=== PATIENT | female | born 1985 | race Caucasian/White ===

== ENCOUNTER 2019-11-14 19:53 | Emergency (ER) | payer OTHER, MEDICAID, SELFPAY ==
[2019-11-14 20:04] VITALS: BP 138/85; PULSE 102; RESP 24; TEMP 37.4; O2SAT 100
--- NOTE | 2019-11-14 21:30 | ED_ITS ---
HPI - Skin/Abscess/Foreign Bdy General Chief complaint: Skin/Abscess/Foreign Body Stated complaint: abcess right forearm draining Time Seen by Provider: 11/14/19 20:45 Source: patient Mode of arrival: Ambulatory Limitations: no limitations History of Present Illness HPI narrative: 34-year-old woman with a history of IV drug use presents with a right forearm abscess that is just starting to drain. She does have a moderate amount of cellulitis over the upper arm. She doesn't report significant fevers but she does note that she hasn't been feeling as well for the last few days. She does note that it has been draining somewhat already. She has been taking amoxicillin for the last 2 days and has noticed that the superficial erythema extending up the forearm is improving. She states that she has never had a bscesses or other health complications from her IV drug use Related Data Home Medications Medication Instructions Recorded Confirmed No Known Home Medications 11/14/19 11/14/19 Allergies Allergy/AdvReac Type Severity Reaction Status Date / Time Penicillins Allergy Intermediate Rash Verified 11/14/19 20:12 Review of Systems Review of Systems Narrative: She notes that she has returned intermittently to her half a g of IV heroin drug use. She is intermittently following up with [facility] and Suboxone. Review of systems is otherwise unremarkable Patient History Medical History (Updated 11/14/19 @ 21:49 by Olivia Leone MD) Opioid use disorder (Acute) Social History Smoking Status: Current every day smoker Smoking Status: Current every day smoker tobacco type: cigarettes alcohol intake frequency: 0-2 drinks per day Substance Use Type: heroin and IV drugs Exam Narrative Exam Narrative: General: Alert appropriate in no acute distress Respiratory: Able to speak in full sentences, no obvious respiratory distress Cardiac: On careful auscultation no murmurs gallops rubs or clicks Skin: warm and dry, area of necrotic tissue developing on the underside of her right forearm which is the area of drainage. Her forearm is tense without obvious fluctuance aside from the portion that's draining. She has erythema extending past the elbow and down toward the wrist. She has full range of motion that is not painful at the shoulder the elbow the wrist and fingers. Full sensation to all fingers right hand Neurologic: Grossly intact no obvious asymmetries or abnormalities Psych, appropriate insight and affect, cooperative Bedside ultrasound suggests moderate amount of fluid still remaining in the forearm close to the area of drainage Initial Vital Signs Initial Vital Signs: Vital Signs Temperature 99.4 F 11/14/19 20:04 Pulse Rate 102 H 11/14/19 20:04 Respiratory Rate 24 11/14/19 20:04 Blood Pressure 138/85 11/14/19 20:04 Pulse Oximetry 100 11/14/19 20:04 Procedures Abscess I/D I&D #1: Site: upper extremity Side (if applicable): right Local Anesthetic: lidocaine 1% Amount of anesthesia used (mL): 10 Technique: incised with #11 blade Amount of fluid expressed (mL): 10 Irrigation: Yes Packing used?: plain Complications: other (The area of necrotic tissue was debrided and extruded. the wound was extended up toward the elbow for approximately 2 cm to get more of the fluid seen on the bedside ultrasound to drain.) Course Orders Ordered: Discontinued Medications Ceftriaxone Sodium (Rocephin) 2,000 mg IM NOW ONE Stop: 11/14/19 21:09 Ceftriaxone Sodium (Rocephin) 1,000 mg IM NOW ONE Stop: 11/14/19 21:30 Ceftriaxone Sodium (Rocephin) 1,000 mg IM NOW ONE Stop: 11/14/19 21:31 Ceftriaxone Sodium (Rocephin) 1,000 mg IM NOW ONE Stop: 11/14/19 21:38 Lidocaine HCl (Xylocaine 1%) 4.2 ml INJ NOW ONE Stop: 11/14/19 21:09 Lidocaine HCl (Xylocaine-Mpf 1%) 10 ml INJ NOW ONE Stop: 11/14/19 21:18 Lidocaine/Sodium Bicarbonate (Buffered Lidocaine 10 Ml Syr) 10 ml INJ NOW ONE Stop: 11/14/19 21:15 Vital Signs Vital signs: Vital Signs - 8 hr 11/14/19 20:04 Temperature 99.4 F Pulse Rate 102 H Respiratory Rate 24 Blood Pressure 138/85 Pulse Oximetry 100 Discharge Plan Departure Patient Disposition: Home Clinical Impression: Opioid use disorder Cellulitis Qualifiers: Site of cellulitis: extremity Site of cellulitis of extremity: upper extremity Laterality: right Qualified Code(s): L03.113 - Cellulitis of right upper limb Abscess of skin or subcutaneous tissue Qualifiers: Site of cutaneous abscess: extremity Site of cutaneous abscess of extremity: upper extremity Laterality: right Qualified Code(s): L02.413 - Cutaneous abscess of right upper limb Instructions: DI for Skin Abscess Activity Restrictions/Additional Instructions: Thank you for coming in today. Your abscess did need to be opened a bit more and some of the tissue needed to be removed. This wound will heal from the inside out but it will take some time to do that. I have left a bit of packing in the wound that I would like you to remove on Saturday or Saturday. You can do this in the shower. It is okay to get the wound wet and let water run over the wound. It is okay and encouraged to allow it to continue to drain more. You've been given 2 g of ceftriaxone as a shot of antibiotics in the emergency department to make sure that were controlling the cellulitis over the forearm. I would like you to stop the amoxicillin that your current leak taking. Tomorrow I want you to start clindamycin and Septra together. These 2 antibiotics are both helpful in treating MRSA infections. We typically assumed that abscesses are MRSA infections If you notice that you are getting worse, developed fevers, you're having shortness of breath, or your arm is not improving, please return to the emergency room. Good luck with the rest of your schooling and I really encouraged to get back to [facility] Prescriptions: No Action No Known Home Medications RF: 0
[2019-11-14] MEDS: LIDOCAINE 1% 20 ML 4.2 ML INJ (22:15)
[2019-11-14] MEDS: cefTRIAXone 2,000 MG VIAL 1000 MG IM ×2 (22:15)
[2019-11-14 22:38] VITALS: BP 153/83; PULSE 72; RESP 16; O2SAT 94
== END 2019-11-14 22:40 | disposition home or self-care (01) ==
PROVIDERS: Emergency Provider Emergency Medicine
DX: L03.113 Cellulitis of right upper limb (principal); L02.413 Cutaneous abscess of right upper limb; F11.99 Opioid use, unspecified with unspecified opioid-induced disorder
CPT/HCPCS: 10060; 96372; 99283; J0696

== ENCOUNTER 2020-06-15 03:19 | Emergency (ER) | payer OTHER, MEDICAID, SELFPAY ==
[2020-06-15 03:20] VITALS: BP 120/75; PULSE 101; RESP 20; TEMP 36.8; O2SAT 100
--- NOTE | 2020-06-15 03:21 | ED.GENADULT ---
HPI - General Adult General Chief complaint: Skin/Abscess/Foreign Body Stated complaint: cellulitis left hand wants antibiotics Time Seen by Provider: 06/15/20 03:19 Source: patient Mode of arrival: Ambulatory Limitations: no limitations History of Present Illness HPI narrative: Patient is a 35-year-old female. Known IV drug user with daily heroin here for evaluation of abscess/cellulitis to her left hand/wrist. She states that she noticed the swelling a couple days ago. It started to drain within the past 24 hours. No fevers. She stated that this was an location where she has injected herself. She has had multiple abscesses and cellulitis in the past and she was concerned that she needed antibiotics. Has not tried anything for her symptoms prior to arrival. Related Data Previous Rx's Medication Instructions Recorded clindamycin HCl 300 mg PO TID #21 cap 11/14/19 sulfamethoxazole-trimethoprim 2 tab PO BID #28 tab 11/14/19 clindamycin HCl 300 mg PO Q6H 7 Days #28 cap 06/15/20 Allergies Allergy/AdvReac Type Severity Reaction Status Date / Time Penicillins Allergy Intermediate Rash Verified 11/14/19 20:12 Review of Systems Constitutional Constitutional: Denies fever(s) Cardiovascular Cardiovascular: Denies chest pain and Denies dyspnea Respiratory Respiratory: Denies dyspnea Musculoskeletal Comments: Swelling and pain left arm and wrist Integumentary/Breasts Comments: Redness and swelling to the left wrist and hand up the left arm Neurologic Neurologic: Denies behavioral changes Psychiatric Psychiatric: Denies behavioral changes Hematologic/Lymphatic Hematologic/Lymphatic: Denies easy bleeding and Denies easy bruising Patient History Medical History Opioid use disorder (Acute) Social History Smoking Status: Current every day smoker Smoking Status: Current every day smoker tobacco type: cigarettes alcohol intake frequency: 0-2 drinks per day Substance Use Type: heroin and IV drugs Exam Initial Vital Signs Initial Vital Signs: Vital Signs Temperature 98.2 F 06/15/20 03:20 Pulse Rate 101 H 06/15/20 03:20 Respiratory Rate 20 06/15/20 03:20 Blood Pressure 120/75 06/15/20 03:20 Pulse Oximetry 100 06/15/20 03:20 Const General: cooperative and comfortable Limitations: mental status not altered HENAK Head: normal to inspection and normocephalic Cardio Pulses: radial pulses present on the left Skin Other: Patient with a 1 cm x 2 cm abscess that is draining on the volar aspect of the left forearm just proximal to the wrist at the base of the thumb on the radial aspect. Patient has redness that extends down into the hand into the thumb. Also redness that extends on the ulnar aspect/volar aspect of the left forearm up to the elbow and potentially into the left upper extremity however this is not for certain and could potentially be a sunburn. Neuro General: patient alert and patient awake Sensory Exam: no sensory deficits noted Extrem Other: Swelling of the left hand and left forearm. Patient can flex and extend at the wrist Psych Appearance: grossly normal and well kempt Procedures Abscess I/D I&D #1: Site: other (Left wrist) Side (if applicable): left Local Anesthetic: lidocaine 1% and with bicarb Amount of anesthesia used (mL): 6 Technique: incised with #11 blade Irrigation: Yes Packing used?: none Scores GCS Jose coma scale eye opening: Spontaneous Jose coma scale verbal response: Orientated Jose coma scale motor response: Obey commands [place] coma scale total score: 15 Course Orders Ordered: ED Orders 06/15/20 03:28 Wound Culture and Gram Stain Stat Clindamycin Phosphate (Cleocin) 600 mg in 50 mls @ 50 mls/hr IV NOW ONE Stop: 06/15/20 04:44 Last Admin: 06/15/20 03:53 Dose: 50 mls/hr Documented by: RMARTIN Discontinued Medications Lidocaine/Sodium Bicarbonate (Buffered Lidocaine 10 Ml Syr) 10 ml INJ NOW ONE Stop: 06/15/20 03:25 Last Admin: 06/15/20 03:28 Dose: 10 ml Documented by: BRENDAN Vital Signs Vital signs: Vital Signs - 8 hr 06/15/20 03:20 Temperature 98.2 F Pulse Rate 101 H Respiratory Rate 20 Blood Pressure 120/75 Pulse Oximetry 100 Medical Decision Making [facility] [place] Narrative Medical decision making narrative: We did remove 3 rings from her left hand and they were placed in a specimen cup and given to the patient. An incision and drainage was performed with return of purulent material. Given the appearance of the cellulitis I did advise the patient that it would be best if we admitted her to the hospital for IV antibiotics as I feel that outpatient oral antibiotics has a fairly high chance of failure. Patient stated that she did not want to be admitted to the hospital. Patient was alert oriented x3. GCS 15. Clinically intoxicated. In my opinion capacity to make decisions. This decision was had with her boyfriend who was in the room. Patient stated that she would rather not be admitted and would rather try oral antibiotics as an outpatient. She did agree to have a dose of IV antibiotics prior to discharge. We did give her care instructions with regard to the incision and drainage of the abscess. Informed her that if she started to develop fevers or for redness worse under she became more pain for she started to feel bad in any way that she needed return to the emergency department immediately. Patient expressed understanding and agreement. Discharge Plan Departure Patient Disposition: Home Clinical Impression: Abscess Cellulitis Qualifiers: Site of cellulitis: extremity Site of cellulitis of extremity: upper extremity Laterality: left Qualified Code(s): L03.114 - Cellulitis of left upper limb Instructions: DI for Cellulitis -- Adult, DI for Incision and Drainage of a Skin Abscess Activity Restrictions/Additional Instructions: You can wash your hands like normal and wash the abscess with soap and water. You can keep it covered otherwise. Expect some drainage from the area. You were given a dose of antibiotics here in the emergency department however recommend that you start taking the antibiotics that you were given a prescription for as directed. You opted to not be admitted to the hospital in attempt to treat this by oral antibiotics as an outpatient however if you start to feel worse, the redness moves up your arm, you develop fevers or any other worsening symptoms please return to the emergency department immediately for further evaluation and treatment. Prescriptions: New clindamycin HCl 300 mg capsule 300 mg PO Q6H 7 Days Qty: 28 RF: 0 No Action sulfamethoxazole-trimethoprim 400-80 mg tablet 2 tab PO BID Qty: 28 RF: 0 clindamycin HCl 300 mg capsule 300 mg PO TID Qty: 21 RF: 0
[2020-06-15] MEDS: LIDO 1%/SOD BICARB 8.4% (10ML) 10 ML SYRINGE INJ (03:28)
[2020-06-15] MEDS: CLINDAMYCIN 600 MG/50 ML PIGGYBACK 50 MG IV (03:53)
[2020-06-15 04:54] VITALS: BP 103/55; PULSE 90; RESP 14; O2SAT 99
== END 2020-06-15 04:55 | disposition home or self-care (01) ==
PROVIDERS: Emergency Provider Emergency Medicine
DX: L02.512 Cutaneous abscess of left hand (principal); L03.114 Cellulitis of left upper limb
CPT/HCPCS: 10060; 87070; 87075; 87077; 87147; 87186; 87205; 96365; 99283; 99284